=== PATIENT | male | born 1995 | race Two or more races ===

== ENCOUNTER 2021-05-20 01:42 | Emergency (ER) | payer OTHER ==
[~2021-05-20] VITALS: Ht 185.4 cm; Wt 79.4 kg
[2021-05-20 03:13] VITALS: BP 125/83
[2021-05-20 03:51] LABS: Hepatitis B Surface Antibody Negative
[2021-05-20] MEDS ORDERED: ACETAMINOPHEN 325 MG TAB PO ONE (04:30)
[2021-05-20 05:27] LABS: Hepatitis B Surface Antigen Negative (Negative)
== END 2021-05-20 06:37 | disposition home or self-care (01) ==
LOC: ER 01:42
DX: S63.681A Other sprain of right thumb, initial encounter (principal); Z77.21 Contact with and (suspected) exposure to potentially hazardous body fluids; Y04.8XXA Assault by other bodily force, initial encounter; Y93.89 Activity, other specified; Y92.89 Other specified places as the place of occurrence of the external cause; Y99.0 Civilian activity done for income or pay
CPT/HCPCS: 36415; 73130; 86703; 86706; 86803; 87340

== ENCOUNTER 2021-12-14 12:50 | Emergency (ER) | payer OTHER ==
[~2021-12-14] VITALS: Ht 180.3 cm; Wt 81.6 kg
[2021-12-14 13:06] VITALS: BP 131/89
[2021-12-14] MEDS ORDERED: SODIUM CHLORIDE 0.9% 1,000 ML IV ONE (13:45)
[2021-12-14] MEDS ORDERED: PROMETHAZINE HCL 25 MG/ML 1ML IV ONE (13:45)
[2021-12-14] MEDS ORDERED: cefTRIAXone 1GM/50ML D5W 50 ML IV ONE (14:00)
[2021-12-14] MEDS ORDERED: IBUP800T27 PO (14:19)
[2021-12-14] MEDS ORDERED: AMOX-277 PO (14:19)
== END 2021-12-14 14:35 | disposition home or self-care (01) ==
LOC: EDBD 12:50 → ER 12:50
DX: S02.40DA Maxillary fracture, left side, initial encounter for closed fracture (principal); S01.412A Laceration without foreign body of left cheek and temporomandibular area, initial encounter; R42 Dizziness and giddiness; X58.XXXA Exposure to other specified factors, initial encounter; Y93.89 Activity, other specified; Y92.89 Other specified places as the place of occurrence of the external cause; Y99.8 Other external cause status
CPT/HCPCS: 12011; 70450; 70486; 96361; 96365; 96375; 99284; J0696; J2550; J7030